=== PATIENT | male | born 1965 | race Caucasian/White ===

== ENCOUNTER 2022-06-15 18:56 | Inpatient (IN) | payer OTHER ==
[2022-06-15] MEDS ORDERED: NA CHLORIDE 0.9% 1,000 ML ONE (19:30)
[2022-06-15] MEDS ORDERED: PROMETHAZINE INJ 25 MG/ML AMP ONE (19:30)
[2022-06-15] MEDS ORDERED: FENTANYL CITR 100 MCG/2 ML ONE (19:34)
[2022-06-15 20:09] LABS: Absolute Lymphocytes (CBC) 2.9 K/uL (0.7-4.9); Hematocrit 42.9 % (39.6-49.0); MCV 90.8 fL (80-100); MPV 8.9 fL (7.6-11.3); RBC Red Blood Cell Count 4.73 M/uL (4.33-5.43)
[2022-06-15 20:18] LABS: Albumin 3.8 g/dL (3.4-5.0); Bilirubin Total 0.3 mg/dL (0.2-1.0); Potassium 4.7 mmol/L (3.5-5.1); Protein, Total 7.7 g/dL (6.4-8.2)
[2022-06-15] MEDS ORDERED: INSULIN -REGULAR HUMAN 50 UNIT/0.5 ML ML ONE (21:41)
--- NOTE | 2022-06-15 21:41 | RAD REPORT ---
EXAM DESCRIPTION: CTAbdomen Pelvis W Contrast - 06/15/2022 9:27 pm CLINICAL HISTORY: upper abdominal pain COMPARISON: No comparisons TECHNIQUE: CT of the abdomen and pelvis was performed with IV contrast. All CT scans are performed using dose optimization technique as appropriate and may include automated exposure control or mA/KV adjustment according to patient size. FINDINGS: Lower chest: Mild circumferential thickened distal esophagus. Liver: No acute abnormality or suspicious lesions. Biliary: No biliary ductal dilatation. Stomach: No significant focal abnormality. Duodenum: No significant focal abnormality. Pancreas: Mild edema around the head of the pancreas. Spleen: No significant abnormality. Adrenal: No suspicious lesions. Kidney/ureter: No hydronephrosis. No renal calculi. Retroperitoneum: Reactive size upper abdominal lymph nodes. Vascular: No aneurysm. Atherosclerosis. Bowel: No bowel obstruction. Normal appendix.. Peritoneum: No ascites or free air. Bladder: Grossly unremarkable. Reproductive: No adnexal masses. Mild prostatomegaly. Bones: No acute fracture. Trace retrolisthesis of L3-L4 L4 on L5. Multilevel degenerative changes are present in the spine. Other: n/a IMPRESSION: Haziness around the head of the pancreas and at the ji hepatis with reactive appearin g upper abdominal lymph nodes. This could reflect acute pancreatitis though is somewhat nonspecific. Correlate with lipase.
--- NOTE | 2022-06-15 21:49 | EDPHYS ---
Physician Documentation [facility] Name: Michael Bowman Jr Age: 57 yrs Sex: Male : 1965 Arrival Date: 06/15/2022 Time: 19:00 Bed 15 Private MD: ED Physician Avtar Hoffmann HPI: 06/16 00:50 This 57 yrs old Male presents to ER via Ambulatory with complaints of Abdominal Pain. kb 00:50 The patient presents with abdominal pain in the upper abdomen. Onset: The kb symptoms/episode began/occurred yesterday. The symptoms do not radiate. Associated signs and symptoms: Pertinent positives: nausea. The symptoms are described as constant. Modifying factors: The symptoms are alleviated by nothing, the symptoms are aggravated by nothing. Severity of pain: At its worst the pain was moderate in the emergency department the pain is unchanged. The patient has experienced similar episodes in the past. The patient has not recently seen a physician. Historical: - Allergies: 06/15 19:08 Cymbalta; lg3 19:08 Prozac; lg3 19:08 Morphine; lg3 - PMHx: 19:08 Diabetes mellitus; hypertension; acute chronic pancreatitis; pancreatic tumor; lg3 - PSHx: 19:08 ERCP; lg3 - Immunization history:: Adult Immunizations up to date, Client reports receiving the 2nd dose of the Covid vaccine, Flu vaccine is not up to date. - Social history:: Smoking status: Patient denies any tobacco usage or history of. Patient/guardian denies using alcohol, street drugs. ROS: 06/16 00:49 Constitutional: Negative for fever, chills, and weight loss. kb Abdomen/GI: Positive for abdominal pain, nausea. All other systems are negative. Exam: 00:49 Constitutional: This is a well developed, well nourished patient who is awake, alert, kb and in no acute distress. Head/Face: Normocephalic, atraumatic. ENT: Moist Mucous membranes Cardiovascular: Regular rate and rhythm with a normal S1 and S2. No gallops, murmurs, or rubs. No pulse deficits. Respiratory: Respirations even and unlabored. No increased work of breathing. Talking in full sentences Skin: Warm, dry with normal turgor. Normal color. MS/ Extremity: Pulses equal, no cyanosis. Neurovascular intact. Full, normal range of motion. Neuro: Awake and alert, GCS 15, oriented to person, place, time, and situation. Moves all extremities. Normal gait. Psych: Awake, alert, with orientation to person, place and time. Behavior, mood, and affect are within normal limits. 00:49 Abdomen/GI: Inspection: abdomen appears normal, Bowel sounds: normal, Palpation: soft, in all quadrants, mild abdominal tenderness, in the right upper quadrant and left upper quadrant, moderate abdominal tenderness, in the epigastric area. Vital Signs: 06/15 19:05 BP 111 / 81; Pulse 96; Resp 17 S; Temp 98.4; Pulse Ox 100% ; Weight 68.95 kg (R); lg3 Height 5 ft. 8 in. (172.72 cm) (R); Pain 8/10; 19:05 Body Mass Index 23.11 (68.95 kg, 172.72 cm) lg3 MDM: 19:01 Patient medically screened. kb 06/16 00:49 Differential diagnosis: gastritis, gastroesophageal reflux disease, pancreatitis. Data kb reviewed: vital signs, nurses notes. Consideration of Admission/Observation Patient was admitted/placed on observation. Management of patient was discussed with the following: Primary Care Provider: Petty accepts pt for admission under Dr Garcia. Counseling: I had a detailed discussion with the patient and/or guardian regarding: the historical points, exam findings, and any diagnostic results supporting the discharge/admit diagnosis, lab results, radiology results, the need for further work-up and treatment in the hospital. 06/15 19:09 Order name: CBC with Diff; Complete Time: 20:20 kb 06/15 19:09 Order name: CMP; Complete Time: 20:44 kb 06/15 19:09 Order name: Lipase; Complete Time: 20:44 kb 06/15 19:09 Order name: CT Abd/Pelvis - IV Contrast Only; Complete Time: 21:42 kb 06/15 21:47 Order name: SARS RAPID; Complete Time: 22:18 kb 06/15 19:09 Order name: IV Saline Lock; Complete Time: 19:49 kb 06/15 19:09 Order name: Labs collected and sent; Complete Time: 19:49 kb Administered Medications: 06/15 19:37 Drug: NS 0.9% 1000 ml Route: IV; Rate: 1 bolus; Site: left antecubital; ke1 19:37 Drug: fentaNYL (PF) 50 mcg Route: IVP; Site: left antecubital; ke1 19:49 Drug: Phenergan (promethazine) 25 mg Route: IM; Site: left deltoid; ke1 21:44 Drug: Insulin Regular Human 10 units {Co-Signature: lg3 (Rae Chamorro RN).} Route: IVP; ke1 Site: left antecubital; 22:04 Drug: Dilaudid (HYDROmorphone) 0.5 mg Route: IVP; Site: left antecubital; ke1 Disposition Summary: 06/15/22 21:48 Hospitalization Ordered Hospitalization Status: Inpatient Admission kb Provider: Lj Garcia Location: Telemetry/MedSurg (Inpatient) kb Condition: Stable kb Problem: new kb Symptoms: are unchanged kb Bed/Room Type: Standard Room Assignment: 411(06/15/22 22:21) mw Diagnosis - Acute pancreatitis without necrosis or infection, unspecified kb Forms: - Medication Reconciliation Form kb - SBAR form kb Signatures: Dispatcher [employer] EDMS Rosibel Zhang, SPRAY GUN STRIPER-C SPRAY GUN STRIPER-Georgie Blank RN ROSELYN mw Rae Chamorro, RN RN lg3 Flakito Torres DO DO ms3 Aiden Bañuelos RN RN ke1 Rema Cheney PAShira PAShira sb4 Rae Chamorro RN lg3 Corrections: (The following items were deleted from the chart) 22:21 21:48 kb mw
--- NOTE | 2022-06-15 21:49 | ER ---
Nurse's Notes [facility] Name: Michael Bowman Jr Age: 57 yrs Sex: Male : 1965 Arrival Date: 06/15/2022 Time: 19:00 Bed 15 Private MD: Diagnosis: Acute pancreatitis without necrosis or infection, unspecified Presentation: 06/15 19:05 Chief complaint: Patient states: upper abd pain starting yesterday with nausea. lg3 Coronavirus screen: Client denies travel out of the [place] in the last 14 days. At this time, the client does not indicate any symptoms associated with coronavirus-19. Ebola Screen: No symptoms or risks identified at this time. Initial Sepsis Screen: Does the patient meet any 2 criteria? No. Patient's initial sepsis screen is negative. Does the patient have a suspected source of infection? No. Patient's initial sepsis screen is negative. Risk Assessment: Do you want to hurt yourself or someone else? Patient reports no desire to harm self or others. Onset of symptoms was June 14, 2021. 19:05 Method Of Arrival: Ambulatory lg3 19:05 Acuity: BOWEN 3 lg3 Triage Assessment: 19:08 General: Appears in no apparent distress. comfortable, Behavior is calm, cooperative. lg3 Pain: Complains of pain in right upper quadrant and left upper quadrant Pain currently is 8 out of 10 on a pain scale. EENT: No deficits noted. No signs and/or symptoms were reported regarding the EENT system. Neuro: No deficits noted. Rodriges Agitation-Sedation Scale (RASS): 0 - Alert and Calm Level of Consciousness is awake, alert, obeys commands, Oriented to person, place, time, situation. Cardiovascular: No deficits noted. Denies chest pain, shortness of breath, Capillary refill < 3 seconds Clubbing of nail beds is absent JVD is absent Patient's skin is warm and dry. Respiratory: No deficits noted. Airway is patent Trachea midline Respiratory effort is even, unlabored, Respiratory pattern is regular, symmetrical. GI: Abdomen is round non-distended, Reports upper abdominal pain, nausea. : No deficits noted. No signs and/or symptoms were reported regarding the genitourinary system. Derm: No deficits noted. No signs and/or symptoms reported regarding the dermatologic system. Skin is intact, is healthy with good turgor, Skin is dry, Skin is normal. Musculoskeletal: No deficits noted. No signs and/or symptoms reported regarding the musculoskeletal system. Circulation, motion, and sensation intact. Range of motion: intact in all extremities. Historical: - Allergies: 19:08 Cymbalta; lg3 19:08 Prozac; lg3 19:08 Morphine; lg3 - PMHx: 19:08 Diabetes mellitus; hypertension; acute chronic pancreatitis; pancreatic tumor; lg3 - PSHx: 19:08 ERCP; lg3 - Immunization history:: Adult Immunizations up to date, Client reports receiving the 2nd dose of the Covid vaccine, Flu vaccine is not up to date. - Social history:: Smoking status: Patient denies any tobacco usage or history of. Patient/guardian denies using alcohol, street drugs. Screenin:30 [facility] ED Fall Risk Assessment (Adult) History of falling in the last 3 months, ke1 including since admission No falls in past 3 months (0 pts) Confusion or Disorientation No (0 pts) Intoxicated or Sedated No (0 pts) Impaired Gait No (0 pts) Mobility Assist Device Used No (0 pt) Altered Elimination No (0 pt) Score/Fall Risk Level 0 - 2 = Low Risk. Abuse screen: Denies threats or abuse. Nutritional screening: No deficits noted. Tuberculosis screening: No symptoms or risk factors identified. Assessment: 22:41 GI: ke1 Vital Signs: 19:05 BP 111 / 81; Pulse 96; Resp 17 S; Temp 98.4; Pulse Ox 100% ; Weight 68.95 kg (R); lg3 Height 5 ft. 8 in. (172.72 cm) (R); Pain 8/10; 19:05 Body Mass Index 23.11 (68.95 kg, 172.72 cm) lg3 ED Course: 19:00 Patient arrived in ED. rg4 19:00 Rosibel Zhang FNP-C is [facility]. kb 19:01 Avtar Hoffmann MD is Attending Physician. kb 19:08 Triage completed. lg3 19:08 Arm band placed on right wrist. lg3 19:14 Aiden Bañuelos, ROSELYN is Primary Nurse. ke1 19:36 Inserted saline lock: 20 gauge in left antecubital area, using aseptic technique. ke1 Accessed. 19:49 CBC with Diff Sent. ke1 19:49 CMP Sent. ke1 19:49 Lipase Sent. ke1 21:29 CT Abd/Pelvis - IV Contrast Only In Process Unspecified. EDMS 21:48 Lj Garcia is Hospitalizing Provider. kb 21:53 SARS RAPID Sent. ke1 22:41 No provider procedures requiring assistance completed. Patient admitted, IV remains in ke1 place. 22:42 Patient has correct armband on for positive identification. Bed in low position. ke1 Administered Medications: 19:37 Drug: NS 0.9% 1000 ml Route: IV; Rate: 1 bolus; Site: left antecubital; ke1 19:37 Drug: fentaNYL (PF) 50 mcg Route: IVP; Site: left antecubital; ke1 19:49 Drug: Phenergan (promethazine) 25 mg Route: IM; Site: left deltoid; ke1 21:44 Drug: Insulin Regular Human 10 units {Co-Signature: lg3 (Rae Chamorro RN).} Route: IVP; ke1 Site: left antecubital; 22:04 Drug: Dilaudid (HYDROmorphone) 0.5 mg Route: IVP; Site: left antecubital; ke1 Medication: 22:42 VIS not applicable for this client. ke1 Outcome: 21:48 Decision to Hospitalize by Provider. kb 22:42 Admitted to Med/surg accompanied by tech. ke1 22:42 Condition: good 22:42 Instructed on the need for admit. 22:42 Patient left the ED. ke1 Signatures: Dispatcher [employer] EDMS Rosibel Zhang, HASMUKH-C HELP DESK OPERATOR-Aiyana Sales rg4 Rae Chamorro, RN RN lg3 Aiden Bañuelos RN RN ke1 Rae Chamorro RN lg3
--- NOTE | 2022-06-15 22:03 | P.HP ---
Certification for Inpatient Patient admitted to: Inpatient With expected LOS: <2 Midnights Patient will require the following post-hospital care: None Practitioner: I am a practitioner with admitting privileges, knowledge of patient current condition, hospital course, and medical plan of care. Services: Services provided to patient in accordance with Admission requirements found in Title 42 Section 412.3 of the Code of Federal Regulations Patient History Date of Service: 06/15/22 Reason for admission: Acute Pancreatitis History of Present Illness: Patient is a 57 year old male with past medical history of hypertension, insulin dependent type 2 diabetes, dementia who presented to the emergency department with complaints of epigastric abdominal pain and nausea. Labs are significant for lipase 479, glucose 415, alk phos 171. CT showed "Haziness around the head of the pancreas and at the ji hepatis with reactive appearing upper abdominal lymph nodes. This could reflect acute pancreatitis though is somewhat nonspecific. Correlate with lipase." Patient is admitted for further management. Home medications list reviewed: Yes - Past Medical/Surgical History Diabetic: Yes -: Type 2 Diabetes, Insulin Dependent -: Hypertension -: Pancreatitis -: Dementia -: ERCP Psychosocial/ Personal History: Patient lives at home alone. He recently moved here from [place]. - Social History Smoking Status: Never smoker Alcohol use: No CD- Drugs: No Caffeine use: Yes Place of Residence: Home Review of Systems Gastrointestinal: Nausea, Abdominal Pain Physical Examination - Vital Signs Temperature: 98.4 F Blood Pressure: 111/81 Pulse: 96 Respirations: 17 Pulse Ox (%): 100 - Physical Exam General: Alert, In no apparent distress HEENT: Atraumatic, PERRLA, EOMI, Sclerae nonicteric Neck: Supple, 2+ carotid pulse no bruit Respiratory: Clear to auscultation bilaterally, Normal air movement Cardiovascular: Regular rate/rhythm, Normal S1 S2 Gastrointestinal: Normal bowel sounds, Non-distended, Tenderness Musculoskeletal: No tenderness Integumentary: No rashes Neurological: Normal speech, Normal strength at 5/5 x4 extr, Normal tone, Normal affect - Studies Laboratory Data (last 24 hrs) 06/15/22 19:22: Sodium 136, Potassium 4.7, BUN 20 H, Creatinine 1.15, Glucose 415 H*, Total Bilirubin 0.3, AST 15, ALT 31, Alkaline Phosphatase 191 H, Lipase 479 H 06/15/22 19:22: WBC 9.90, Hgb 14.3, Hct 42.9, Plt Count 356 Assessment and Plan - Problems (Diagnosis) (1) Pancreatitis Current Visit: Yes Status: Acute Qualifiers: Chronicity: acute Pancreatitis type: other Acute pancreatitis complication: no infection or necrosis Qualified Code(s): K85.80 - Other acute pancreatitis without necrosis or infection (2) Hypertension Current Visit: Yes Status: Chronic Qualifiers: Hypertension type: primary hypertension Qualified Code(s): I10 - Essential (primary) hypertension (3) Type 2 diabetes mellitus Current Visit: Yes Status: Chronic Qualifiers: Diabetes mellitus fci insulin use: unspecified terminal make up operator insulin use status Diabetes mellitus complication status: with hyperglycemia Qualified Code(s): E11.65 - Type 2 diabetes mellitus with hyperglycemia - Plan Patient is admitted for further management of acute pancreatitis. NPO. IV hydration. Pain medications and antiemetics as needed. Glucose monitoring and control with sliding scale. Confirm home insulin dose. Check lipid panel and A1c. Patient report at least 10 prior episodes of pancreatitis. 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 Lipase daily. Monitor and replete electrolytes per protocol. Reconcile and continue home medications. Lovenox for VTE prophylaxis. Full code. Discharge Plan: Home Plan to discharge in: 48 Hours - Advance Directives Does patient have a Living Will: No Does patient have a Durable POA for Healthcare: No - Code Status/Comfort Care Code Status Assessed: Yes Code Status: Full Code Physician Review: Patient Assessed, Agree with Above Assessment and Plan Critical Care: No Time Spent Managing Pts Care (In Minutes): 50
[2022-06-15] MEDS ORDERED: HYDROMORPHONE HCL 0.5 MG/0.5 ML INJ ONE (22:04)
[2022-06-15 22:08] LABS: SARS-CoV-2 Antigen Rapid Res Negative (Negative)
[2022-06-15 22:55] VITALS: O2SAT 100
[2022-06-15 23:05] VITALS: BMI 22.5
[2022-06-15] MEDS ORDERED: PROMETHAZINE INJ 25 MG/ML AMP IV PRN (23:07)
[2022-06-15] MEDS ORDERED: HYDROMORPHONE HCL 0.5 MG/0.5 ML INJ IV PRN (23:07)
[2022-06-15] MEDS ORDERED: ACETAMINOPHEN 500 MG TAB PO PRN (23:07)
[2022-06-16] MEDS: Ringers Lactate 1,000 ML IV SCH ×2 (00:45→09:04)
[2022-06-16 05:03] LABS: Absolute Lymphocytes (CBC) 3.1 K/uL (0.7-4.9); Hematocrit 41.5 % (39.6-49.0); Lymphocytes % 35.5 % (15.3-44.8); MCV 90.5 fL (80-100); MPV 8.2 fL (7.6-11.3); RBC Red Blood Cell Count 4.58 M/uL (4.33-5.43)
[2022-06-16 05:33] LABS: Albumin 3.3 g/dL (3.4-5.0); Bilirubin Total 0.3 mg/dL (0.2-1.0); Phosphorus 3.5 mg/dL (2.5-4.9); Potassium 4.7 mmol/L (3.5-5.1); Protein, Total 7.2 g/dL (6.4-8.2)
[2022-06-16 05:34] LABS: Magnesium 2.1 mg/dL (1.6-2.4); Thyroid Stimulating Hormone 1.89 uIU/mL (0.358-3.740)
[2022-06-16] MEDS ORDERED: INSULIN -REGULAR HUMAN 50 UNIT/0.5 ML ML SQ SCH (07:30)
[2022-06-16 08:08] VITALS: BP 123/80; TEMP 97.6
[2022-06-16] MEDS: ENOXAPARIN 40 MG/0.4 ML SQ SCH ×2 (09:00→09:03)
--- NOTE | 2022-06-16 11:31 | P.DS ---
Discharge Date: 06/16/22 Disposition: ROUTINE DISCHARGE Discharge Condition: FAIR Reason for Admission: Acute Pancreatitis - Problems (1) Acute pancreatitis Status: Acute (2) Hypertension Status: Chronic Qualifiers: Hypertension type: primary hypertension Qualified Code(s): I10 - Essential (primary) hypertension (3) Type 2 diabetes mellitus Status: Chronic Qualifiers: Diabetes mellitus extermination supervisor insulin use: unspecified extermination supervisor insulin use status Diabetes mellitus complication status: with hyperglycemia Qualified Code(s): E11.65 - Type 2 diabetes mellitus with hyperglycemia Brief History of Present Illness: Patient is a 54 year old male with past medical history of CHF, situs inversus, and non-insulin dependent type 2 diabetes who presented to the emergency departm ent with complaints of shortness of breath. He reports it has gotten progressively worse over the past 3 months and is especially worse when he lies flat. His labs are significant for glucose 195, BUN 19, Cr 1.38, ddimer 1286, magnesium 1.5, BNP 5048. Chest xray was negative. Chest CTA showed " mild pulmonary congestion including bilateral pleural effusions." it was noted that patient's O2 saturation dropped down to 88% while resting. Patient states that he was diagnosed with CHF in the past but has not taken any medication or followed up with anyone about it. He was given 40 mg IV lasix in the emergency department. Patient is admitted for further management. Hospital Course: Patient admitted to the medical floor and treated supportively with IV hydration. His abdominal pain resolved, lipase trended down to normal. Patient currently denies any symptoms. He tolerated solid diet. Patient states that he was noncompliant with his insulin. He states that his blood sugars usually well controlled with Levemir 30 units twice a day and just got a refill for his Levemir. Patient is deemed stable for discharge. Vital Signs/Physical Exam: Temp Pulse Resp BP Pulse Ox 97.6 F 75 16 123/80 99 06/16/22 08:00 06/16/22 08:00 06/16/22 09:30 06/16/22 08:00 06/16/22 09:30 General: Alert, In no apparent distress, Oriented x3 HEENT: Mucous membr. moist/pink Neck: JVD not distended Respiratory: Clear to auscultation bilaterally, Normal air movement Cardiovascular: No edema, Regular rate/rhythm, Normal S1 S2 Gastrointestinal: Normal bowel sounds, Soft and benign, Non-distended, No tenderness Musculoskeletal: No swelling Integumentary: No rashes Neurological: Normal strength at 5/5 x4 extr Laboratory Data at Discharge: WBC 8.60 K/uL (4.3-10.9) 06/16/22 04:52 Hgb 13.8 g/dL (13.6-17.9) 06/16/22 04:52 Hct 41.5 % (39.6-49.0) 06/16/22 04:52 Plt Count 301 K/uL (152-406) 06/16/22 04:52 Sodium 140 mmol/L (136-145) 06/16/22 04:52 Potassium 4.7 mmol/L (3.5-5.1) 06/16/22 04:52 BUN 15 mg/dL (7-18) 06/16/22 04:52 Creatinine 0.88 mg/dL (0.70-1.30) 06/16/22 04:52 Glucose 289 mg/dL (74-106) H 06/16/22 04:52 Phosphorus 3.5 mg/dL (2.5-4.9) 06/16/22 04:52 Magnesium 2.1 mg/dL (1.6-2.4) 06/16/22 04:52 Total Bilirubin 0.3 mg/dL (0.2-1.0) 06/16/22 04:52 AST 12 U/L (15-37) L 06/16/22 04:52 ALT 23 U/L (16-61) 06/16/22 04:52 Alkaline Phosphatase 145 U/L (45-117) H D 06/16/22 04:52 Triglycerides 100 mg/dL (<150) 06/16/22 04:52 Cholesterol 178 mg/dL (<200) 06/16/22 04:52 HDL Cholesterol 45 mg/dL (40-60) 06/16/22 04:52 Cholesterol/HDL Ratio 3.96 06/16/22 04:52 Lipase 320 U/L (73-393) 06/16/22 04:52 Home Medications: Insulin Detemir [Levemir] 30 units SQ BID 06/16/22 Diet: ADA Activity: Ad kimberly Followup: Kane Wells MD [ASSOCIATE-ACTIVE - CAN ADMIT] - 1-2 Weeks (Call to schedule appointment. ) Time spent managing pt's care (in minutes): 32
== END 2022-06-16 10:15 | disposition home or self-care (01) | DRG 440 ==
LOC: ER 18:56 → ERHOLD 22:15 → 4TH 22:29
PROVIDERS: ADMIT Internal Medicine; ATTEND Internal Medicine
DX: K85.80 Other acute pancreatitis without necrosis or infection (principal); I10 Essential (primary) hypertension; E11.65 Type 2 diabetes mellitus with hyperglycemia; F03.90 Unspecified dementia, unspecified severity, without behavioral disturbance, psychotic disturbance, mood disturbance, and anxiety; D49.0 Neoplasm of unspecified behavior of digestive system; Z91.14 Patient's other noncompliance with medication regimen; Z79.4 Long term (current) use of insulin; Z88.5 Allergy status to narcotic agent; Z88.8 Allergy status to other drugs, medicaments and biological substances; Z20.822 Contact with and (suspected) exposure to COVID-19
CPT/HCPCS: 36415; 74177; 80053; 80061; 82947; 83036; 83690; 83735; 84100; 84443; 85025; 87811; 96372; 96374; 96375; 99285; J1170; J1650; J1815; J2550; J3010; J7030; J7120; Q9967

== ENCOUNTER 2022-06-17 19:21 | Observation (INO) | payer OTHER ==
--- OUTSIDE RECORDS SUMMARY | 2022-06-17 19:24 | XMS REPORT | Continuity of Care Document ---
:1965 Author Organization [facility] t Address [address] [place] [address] Care Team Providers Name Role Phone Unavailable Unavailable Unavailable Problems This patient has no known problems. Allergies, Adverse Reactions, Alerts This patient has no known allergies or adverse reactions. Medications This patient has no known medications. Procedures This patient has no known procedures. Encounters Start End Encounter Admission Attending Care Care Encounter Source Date/Time Date/Time Type Type Clinicians Facility Department ID 2022-06-14 2022-06-14 Outpatient [facility] [id number] Andrea 13:26:50 13:26:50 [id number] [facility] 2022-06-13 2022-06-13 Outpatient [facility] [id number] Andrea 13:54:55 13:54:55 [id number] [place] Results Test Description Test Time Test Comments Results Result Comments Source VITAMIN B-12 2022-06-15 06:59:33 Test Item Value Reference Range Interpretation Comme nts VITAMIN B-12 (test code = 545 PG/ML 200-950 U NLESS OTHERWISE INDICATED, ALL 2840) TESTING PERFORM ED ATCLINICAL PATHOLOGY [facility]. [address] [place] [id number] SUPERVISOR SHEARING: COLLIN IQBAL M.D. CLIA NUMBER [id number] CAP ACCREDITATION N O. [id number] TSH, THIRD [id number] 06:59:33 Test Item Value Reference Range Interpretation Comments TSH, THIRD GENERATION (test code 1.630 UIU/ML 0.400-4.100 = 2821) FOLIC [id number] 06:59:33 Test Item Value Reference Range Interpretation Comments FOLIC ACID (test 7.6 UG/L SEE BELOW INTE RPRETIVE RANGES code = 2695) DEFICIENC Y . . . . . . . . . . . . . . . UG/L <4.0 POSSIBLE D EFICIENCY. . . . . . . . . . . UG/L 4.0-5.9 SUFFICI ENT . . . . . . . . . . . . . . . UG/L >=6.0 HEMOGLOBIN [id number] 05:18:02 Test Item Value Reference Range Interpretation Comments HEMOGLOBIN A1c (test 13.6 % 4.2-5.6 H AMERIC AN DIABETES code = 83859) ASSOCIATION IDELINES FOR HGB A1C: PREDIABETES/INC REASED RISK . . . . . . . 5 .7-6.4% DIAGNOSIS OF DI ABETES . . . . . . . . . >=6 .5% WITH CONFIRMATION OR APPROPRIATE SYMPTOMS NOTE: ASSAY MAY BE AFFECTED BY HEMOGLOBINOPATH IES (SICKLE CELL ANEMIA, S- C DISEASE, OTHERS) OR RACHEAL FICIALLY LOWERED BY DECR EASED RED CELL SURVIVAL ( HEMOLYTIC ANEMIAS, BLOOD LOSS, ETC.). CONSIDER ALTERN ATE TESTING OR LABORATORY C ONSULTATION. [id number] 04:00:01 Test Item Value Reference Range Interpretation Comments RPR RESULT (test code = NON-REACTIVE NON-REACTIVE 3501) RPR TITER (test code = 3500) NOT INDIC. TITER NOT INDIC. COMPREHENSIVE METABOLIC [id number] 03:45:17 Test Item Value Reference Range Interpretation Comments GLUCOSE (test code = 447 MG/DL 70-99 H 2216) BUN (test code = 18 MG/DL 6-20 2207) CREATININE (test 0.80 MG/DL 0.80-1.40 code = 2214) eGFR (2020 CKD-EPI) 102 >60 (test code = 93363) ML/MIN/1.73 CALC BUN/CREAT (test 23 RATIO 6-28 code = 2235) SODIUM (test code = 138 MEQ/L 736-163 5820) POTASSIUM (test code 5.6 MEQ/L 3.5-5.4 H = 2227) CHLORIDE (test code 98 MEQ/L 95-107 = 2214) CARBON DIOXIDE (test 25 MEQ/L 19-31 code = 2206) CALCIUM (test code = 10.6 MG/DL 8.5-10.5 H 2208) PROTEIN, TOTAL (test 7.9 G/DL 6.1-8.3 code = 2229) ALBUMIN (test code = 4.9 G/DL 3.5-5.2 2200) CALC GLOBULIN (test 3.0 G/DL 1.9-3.7 code = 2240) CALC A/G RATIO (test 1.6 RATIO 1.0-2.6 code = 2234) BILIRUBIN, TOTAL 0.4 MG/DL See_Comment [Automated message] (test code = 2207) The syste m which generated this result transmit [place] reference range : <=1.2. The refe rence range was not u sed to interpret th is result as normal/abnormal . ALKALINE PHOSPHATASE 191 U/L 40-123 H (test code = 2203) AST (test code = 18 U/L 9-50 2217) ALT (test code = 25 U/L 5-50 2218) HEPATITIS PANEL, [id number] 03:42:09 Test Item Value Reference Range Interpretation Comments HEPATITIS A IgM (test NON-REACTIVE NON-REACTIVE code = 14227) HEPATITIS B CORE IgM NON-REACTIVE NON-REACTIVE (test code = 4644) HEPATITIS B SURF AG NON-REACTIVE NON-REACTIVE (test code = 2739) HEPATITIS C ANTIBODY REACTIVE NON-REACTIVE A (test code = 4675) INTERPRETATION (NOTE) Hepatitis A HEPATITIS A: (test serology shows no code = 2552) evidence of acu te hepatitis A. INTERPRETATION (NOTE) Hepatitis B HEPATITIS B: (test serology shows no code = 16423) evidence of ac vanessa hepatitis B and no indication of exposure to hepatitis B vir us in the previous si xto eight months. INTERPRETATION (NOTE) Hepatitis C HEPATITIS C: (test serology is code = 30404) consistent wit h exposure to hepatitis Cviru s. The CDC recomme nds performing a supplemental confirmatory te ston initial positiv e hepatitis C ant ibody tests. HCV PCR quantitativecan be used to confirm these results o n a new sample (See MMWR, 2003;52 R R-3). CBC W/AUTO DIFF WITH [id number] 02:25:00 Test Item Value Reference Range Interpretation Comments WBC (test code = 9.6 K/UL 3.5-11.0 1001) RBC (test code = 5.13 M/UL 4.50-6.10 1002) HEMOGLOBIN (test code 15.1 G/DL 13.5-17.0 = 1003) HEMATOCRIT (test code 46.0 % 40.0-51.0 = 1004) MCV (test code = 89.7 fL 80.0-99.0 1005) MCH (test code = 29.4 PG 25.0-33.0 1006) MCHC (test code = 32.8 G/DL 31.0-36.0 1007) RDW (test code = 12.9 % 11.5-15.0 1038) NEUTROPHILS (test 58.4 % code = 1008) LYMPHOCYTES (test 26.9 % code = 1010) MONOCYTES (test code 10.0 % = 1011) EOSINOPHILS (test 3.1 % code = 1012) BASOPHILS (test code 1.1 % = 1013) IMMATURE GRANULOCYTES 0.5 % (test code = 1036) NUCLEATED RBCS (test 0.0 /100 WBC'S See_Comment [Aut omated code = 1065) message] The sy stem which generated this result transmitted reference range : 0.0. The refere nce range was not u sed to interpret th is result as normal/abnormal . PLATELET COUNT (test 381 K/UL 130-400 code = 1015) ABSOLUTE NEUTROPHILS 5.58 K/UL 1.50-7.50 (test code = 1066) ABSOLUTE LYMPHOCYTES 2.58 K/UL 1.00-4.00 (test code = 1067) ABSOLUTE MONOCYTES 0.96 K/UL 0.20-1.00 (test code = 1068) ABSOLUTE EOSINOPHILS 0.30 K/UL 0.00-0.50 (test code = 1040) ABSOLUTE BASOPHILS 0.11 K/UL 0.00-0.20 (test code = 1069) ABS IMMATURE 0.05 K/UL 0.00-0.10 GRANULOCYTES (test code = 1020) ABS NUCLEATED RBCS 0.00 K/UL 0.00-0.11 (test code = 98111)
[2022-06-17] MEDS ORDERED: NA CHLORIDE 0.9% 1,000 ML ONE ×2 (20:23→21:23)
[2022-06-17 20:33] LABS: Absolute Lymphocytes (CBC) 2.8 K/uL (0.7-4.9); Lymphocytes % 31.6 % (15.3-44.8); MCV 90.6 fL (80-100); MPV 8.6 fL (7.6-11.3); RBC Red Blood Cell Count 4.75 M/uL (4.33-5.43)
[2022-06-17 20:51] LABS: Albumin 3.4 g/dL (3.4-5.0); Bilirubin Total 0.4 mg/dL (0.2-1.0); Protein, Total 7.3 g/dL (6.4-8.2)
[2022-06-17 20:52] LABS: Potassium 4.1 mmol/L (3.5-5.1)
--- NOTE | 2022-06-17 20:59 | EDPHYS ---
Physician Documentation [facility] Name: Michael Bowman Jr Age: 57 yrs Sex: Male : 1965 Arrival Date: 06/17/2022 Time: 19:22 Bed 2 Private MD: ED Physician Flakito Torres HPI: 06/17 19:54 This 57 yrs old Male presents to ER via Ambulatory with complaints of Abdominal Pain - ms3 pancreatitis. 19:54 57-year-old male with past medical history of acute chronic pancreatitis, diabetes, ms3 hypertension presents for upper abdominal pain. Patient states he was admitted on June 15 and discharged on the for pancreatitis. Patient states his pain is located in the epigastric region, rated a 9/10. Patient states he has not taken insulin until this afternoon when he was able to obtain his needles for his pen.. Historical: - Allergies: 19:47 Cymbalta; ll3 19:47 Morphine; ll3 19:47 Prozac; ll3 - PMHx: 19:47 acute chronic pancreatitis; diabetes mellitus; Hypertension; PANCREATIC TUMOR; ll3 - PSHx: 19:47 ercp; ll3 - Immunization history:: Client reports receiving the 2nd dose of the Covid vaccine. - Social history:: Smoking status: Patient denies any tobacco usage or history of. ROS: 19:54 Constitutional: Negative for fever, and chills. Cardiovascular: Negative for chest ms3 pain, and palpitations. Respiratory: Negative for shortness of breath, cough, wheezing, and pleuritic chest pain, MS/Extremity: Negative for injury and deformity, Skin: Negative for injury, rash, and discoloration. 19:54 All other systems are negative. Exam: 19:54 Constitutional: This is a well developed, well nourished patient who is awake, alert, ms3 and in no acute distress. 19:54 Head/Face: Normocephalic, atraumatic. Neck: Trachea midline, no cervical lymphadenopathy. Supple, full range of motion without nuchal rigidity, or vertebral point tenderness. No Meningismus. Chest/axilla: Normal chest wall appearance and motion. Nontender with no deformity. Cardiovascular: Regular rate and rhythm with a normal S1 and S2. No gallops, murmurs, or rubs. Normal PMI, no JVD. No pulse deficits. Respiratory: Lungs have equal breath sounds bilaterally, clear to auscultation and percussion. No rales, rhonchi or wheezes noted. No increased work of breathing, no retractions or nasal flaring. 19:54 Skin: Warm, dry with normal turgor. Normal color with no rashes, no lesions, and no evidence of cellulitis. MS/ Extremity: Pulses equal, no cyanosis. Neurovascular intact. Full, normal range of motion. 19:54 Abdomen/GI: Inspection: abdomen appears normal, Bowel sounds: normal, Palpation: severe ms3 abdominal tenderness, in the epigastric area. Vital Signs: 19:41 BP 145 / 89; Pulse 93; Resp 18; Temp 97.5(TE); Pulse Ox 99% on R/A; Weight 70.31 kg ll3 (R); Height 5 ft. 8 in. (172.72 cm) (R); Pain 9/10; 21:45 BP 134 / 87; Pulse 95; Resp 16; Pulse Ox 100% on R/A; jb4 19:41 Body Mass Index 23.57 (70.31 kg, 172.72 cm) ll3 MDM: 19:35 Patient medically screened. ms3 20:59 I considered the following discharge prescriptions or medication management in the co3 emergency department Medications were administered in the Emergency Department. See MAR. Care significantly affected by the following chronic conditions: Diabetes, Hypertension. ED course: Discussed with patient his lipase is mildly elevated, higher than when at discharge. Discharge versus admission discussed with patient and the decision was made for readmission. Discussed pain medication, Phenergan for nausea with patient. Discussed with patient he will be n.p.o. and we will begin IV fluids.. 21:18 Differential diagnosis: bowel obstruction, non-specific abd pain, pancreatitis. Data ms3 reviewed: vital signs, nurses notes, lab test result(s), CBC, white blood cell count, hemoglobin, hematocrit, platelets, electrolytes, hepatic panel, and as a result, I will discharge patient. Consideration of Admission/Observation Patient was admitted/placed on observation. Management of patient was discussed with the following: Hospitalist: . 21:22 Test considered but Not performed: CT: CT performed on June 15 showing mild ms3 pancreatitis of the pancreatic head.. Counseling: I had a detailed discussion with the patient and/or guardian regarding: the historical points, exam findings, and any diagnostic results supporting the discharge/admit diagnosis, lab results, the need for further work-up and treatment in the hospital. 06/17 19:25 Order name: CBC with Diff; Complete Time: 20:55 ms3 06/17 19:25 Order name: CMP; Complete Time: 20:55 ms3 06/17 19:25 Order name: Lipase; Complete Time: 20:55 ms3 06/17 21:03 Order name: SARS RAPID vc1 06/17 21:37 Order name: Glucose, Ancillary Testing EDMS 06/17 22:06 Order name: SARS-COV-2 Antigen Rapid EDMS 06/17 19:25 Order name: IV Saline Lock; Complete Time: 20:28 ms3 06/17 19:25 Order name: Labs collected and sent; Complete Time: 20:28 ms3 Administered Medications: 20:20 Drug: NS 0.9% 1000 ml Route: IV; Rate: 1 bolus; Site: left antecubital; jb4 21:40 Not Given (Patient Refused): Phenergan (promethazine) 25 mg IM once jb4 21:41 Drug: Dilaudid (HYDROmorphone) 0.5 mg Route: IVP; Site: left antecubital; jb4 21:41 Drug: NS 0.9% 1000 ml Route: IV; Rate: 150 ml/hr; Site: left antecubital; jb4 21:41 Drug: Insulin Regular Human 10 units {Co-Signature: [email or web address] (Omkar Turner RN).} Route: vc1 Sub-Q; Site: left lower abdomen; Disposition Summary: 06/17/22 20:59 Hospitalization Ordered Hospitalization Status: Inpatient Admission ms3 Provider: Lj Garcia ms3 Location: Telemetry/MedSurg (Inpatient) ms3 Condition: Stable ms3 Problem: new ms3 Symptoms: are unchanged ms3 Bed/Room Type: Standard ms3 Room Assignment: 413(06/17/22 21:30) mw Diagnosis - Acute pancreatitis without necrosis or infection, unspecified ms3 - Hyperglycemia, unspecified ms3 - Essential (primary) hypertension ms3 Forms: - Medication Reconciliation Form ms3 - SBAR form ms3 Signatures: Dispatcher [employer] EDSC Georgie Greer RN RN mw Bryson, James, RN RN jbFlakito Vicente DO ms3 Maren Marinelli, RN RN ll3 Dania Greenberg, ROSELYN RN vc1 Omkar Turner RN jb4 Corrections: (The following items were deleted from the chart) 20:05 19:54 Abdomen/GI: Soft, non-tender, with normal bowel sounds. No distension or tympany. ms3 No guarding or rebound. No evidence of tenderness throughout. Skin: Warm, dry with normal turgor. Normal color with no rashes, no lesions, and no evidence of cellulitis. MS/ Extremity: Pulses equal, no cyanosis. Neurovascular intact. Full, normal range of motion. ms3 21:30 20:59 ms3 mw
--- NOTE | 2022-06-17 20:59 | ER ---
Nurse's Notes [facility] Name: Michael Bowman Jr Age: 57 yrs Sex: Male : 1965 Arrival Date: 06/17/2022 Time: 19:22 Bed 2 Private MD: Diagnosis: Acute pancreatitis without necrosis or infection, unspecified;Hyperglycemia, unspecified;Essential (primary) hypertension Presentation: 06/17 19:41 Chief complaint: Patient states: States I was admitted 3 days ago with pancreatitis, ll3 c/o LUQ pain, states I haven't had a bowel movement 3 days. Coronavirus screen: Vaccine status: Patient reports receiving the 2nd dose of the covid vaccine. muscle pain. Ebola Screen: No symptoms or risks identified at this time. Initial Sepsis Screen: Does the patient meet any 2 criteria? No. Patient's initial sepsis screen is negative. Does the patient have a suspected source of infection? Yes: Acute abdominal pain. Risk Assessment: Do you want to hurt yourself or someone else? Patient reports no desire to harm self or others. Onset of symptoms was June 14, 2022. 19:41 Method Of Arrival: Ambulatory ll3 19:41 Acuity: BOWEN 3 ll3 Historical: - Allergies: 19:47 Cymbalta; ll3 19:47 Morphine; ll3 19:47 Prozac; ll3 - PMHx: 19:47 acute chronic pancreatitis; diabetes mellitus; Hypertension; PANCREATIC TUMOR; ll3 - PSHx: 19:47 ercp; ll3 - Immunization history:: Client reports receiving the 2nd dose of the Covid vaccine. - Social history:: Smoking status: Patient denies any tobacco usage or history of. Screenin:20 [facility] ED Fall Risk Assessment (Adult) History of falling in the last 3 months, jb4 including since admission No falls in past 3 months (0 pts) Confusion or Disorientation No (0 pts) Intoxicated or Sedated No (0 pts) Impaired Gait No (0 pts) Mobility Assist Device Used No (0 pt) Altered Elimination No (0 pt) Score/Fall Risk Level 0 - 2 = Low Risk Oriented to surroundings, Maintained a safe environment. Abuse screen: Denies threats or abuse. Nutritional screening: No deficits noted. Tuberculosis screening: No symptoms or risk factors identified. Assessment: 20:20 General: Appears in no apparent distress. comfortable, Behavior is calm, cooperative, jb4 appropriate for age. Pain: Complains of pain in abdomen Pain does not radiate. Pain currently is 9 out of 10 on a pain scale. Neuro: Level of Consciousness is awake, alert, obeys commands, Oriented to person, place, time, situation. Cardiovascular: Patient's skin is warm and dry. Respiratory: Airway is patent Respiratory effort is even, unlabored, Respiratory pattern is regular, symmetrical. GI: Abdomen is flat, non-distended. : No signs and/or symptoms were reported regarding the genitourinary system. EENT: No signs and/or symptoms were reported regarding the EENT system. Derm: Skin is intact, Skin is pink, warm \\T\\ dry. Musculoskeletal: Circulation, motion, and sensation intact. Range of motion: intact in all extremities. 21:20 General: Patient came up to nurses stationing dave, with the only clear words were tw5 " I want this taken out." Patient points to IV. He continued to the Dr. Station saying " My Lipase is normal, I have been hospitalized 13 times, I am not an idiot.". 21:20 General: Behavior is agitated, uncooperative, Patient was asked if he would like to put tw5 a hospital gown on and his response was " WHY, DONT YOU WANT ME TO BE WARM." It was explained to paint that he has the right to refuse. . 22:11 Reassessment: Patient appears in no apparent distress at this time. Patient and/or jb4 family updated on plan of care and expected duration. Pain level reassessed. Patient is alert, oriented x 3, equal unlabored respirations, skin warm/dry/pink. Vital Signs: 19:41 BP 145 / 89; Pulse 93; Resp 18; Temp 97.5(TE); Pulse Ox 99% on R/A; Weight 70.31 kg ll3 (R); Height 5 ft. 8 in. (172.72 cm) (R); Pain 9/10; 21:45 BP 134 / 87; Pulse 95; Resp 16; Pulse Ox 100% on R/A; jb4 19:41 Body Mass Index 23.57 (70.31 kg, 172.72 cm) ll3 ED Course: 19:22 Patient arrived in ED. am2 19:24 Flakito Torres DO is Attending Physician. ms3 19:47 Triage completed. ll3 19:47 Arm band placed on Patient placed in waiting room, Patient notified of wait time. ll3 20:20 Patient has correct armband on for positive identification. Bed in low position. Call jb4 light in reach. Side rails up X 1. Client placed on continuous cardiac and pulse oximetry monitoring. NIBP monitoring applied. 20:20 Initial lab(s) drawn, by me, sent to lab. Inserted saline lock: 18 gauge in left jb4 antecubital area, using aseptic technique. Blood collected. 20:28 CBC with Diff Sent. jb4 20:28 CMP Sent. jb4 20:28 Lipase Sent. jb4 20:57 Lj Garcia is Hospitalizing Provider. ms3 Administered Medications: 20:20 Drug: NS 0.9% 1000 ml Route: IV; Rate: 1 bolus; Site: left antecubital; jb4 21:40 Not Given (Patient Refused): Phenergan (promethazine) 25 mg IM once jb4 21:41 Drug: Dilaudid (HYDROmorphone) 0.5 mg Route: IVP; Site: left antecubital; jb4 21:41 Drug: NS 0.9% 1000 ml Route: IV; Rate: 150 ml/hr; Site: left antecubital; jb4 21:41 Drug: Insulin Regular Human 10 units {Co-Signature: [email or web address] (Omkar Turner RN).} Route: vc1 Sub-Q; Site: left lower abdomen; Medication: 21:20 VIS not applicable for this client. tw5 Outcome: 20:59 Decision to Hospitalize by Provider. ms3 22:24 Patient left the ED. vc1 Signatures: Omkar Turner, RN RN jb4 Jeny Card am2 Flakito Torres DO DO ms3 Susy Dozier tw5 Maren Marinelli RN RN ll3 Dania Greenberg RN RN vc1 Omkar Turner RN jb4
--- NOTE | 2022-06-17 21:05 | P.HP ---
Certification for Inpatient Patient admitted to: Inpatient With expected LOS: <2 Midnights Patient will require the following post-hospital care: None Practitioner: I am a practitioner with admitting privileges, knowledge of patient current condition, hospital course, and medical plan of care. Services: Services provided to patient in accordance with Admission requirements found in Title 42 Section 412.3 of the Code of Federal Regulations Patient History Date of Service: 06/17/22 Reason for admission: Pancreatitis History of Present Illness: Patient is a 57 year old male with past medical history of hypertension, insulin dependent type 2 diabetes, and dementia who presented to the emergency department with complaints of epigastric abdominal pain and nausea. He was admitted here 2 days ago for acute pancreatitis secondary to noncompliance with insulin regimen and treated supportively with IV hydration and bowel rest. His abdominal pain resolved, lipase trended down to normal, and he tolerated solid diet. He returns today with the same symptoms and states that he was not able to use his insulin until today because of access to needles. Labs today are significant for lipase 414, glucose 491, alk phos 202. CT was done 2 days ago and not repeated today. Patient is admitted for further management. Allergies duloxetine [From Cymbalta] Adverse Reaction (Verified 06/15/22 23:07) Nausea/Vomiting fluoxetine [From Prozac] Adverse Reaction (Verified 06/15/22 23:07) Nausea/Vomiting morphine Adverse Reaction (Verified 06/15/22 23:07) Shortness of breath Home medications list reviewed: Yes Home Medications: Insulin Detemir [Levemir] 30 units SQ BID 06/16/22 - Past Medical/Surgical History Diabetic: Yes -: Type 2 Diabetes, Insulin Dependent -: Hypertension -: Pancreatitis -: Dementia -: ERCP Psychosocial/ Personal History: Patient lives at home alone. He recently moved here from [place]. - Family History Father -: Other (see notes) Notes: Alzheimer - Social History Smoking Status: Never smoker Alcohol use: No CD- Drugs: No Caffeine use: Yes Place of Residence: Home Review of Systems Gastrointestinal: Nausea, Abdominal Pain Physical Examination - Vital Signs Temperature: 97.5 F Blood Pressure: 145/89 Pulse: 93 Respirations: 18 Pulse Ox (%): 99 - Physical Exam General: Alert, In no apparent distress HEENT: Atraumatic, PERRLA, EOMI, Sclerae nonicteric Neck: Supple, 2+ carotid pulse no bruit Respiratory: Clear to auscultation bilaterally, Normal air movement Cardiovascular: Regular rate/rhythm, Normal S1 S2 Gastrointestinal: Non-distended, Tenderness Musculoskeletal: No tenderness Integumentary: No rashes Neurological: Normal speech, Normal strength at 5/5 x4 extr - Studies Laboratory Data (last 24 hrs) 06/17/22 20:20: Sodium 135 L, Potassium 4.1, BUN 20 H, Creatinine 1.06, Glucose 491 H*, Total Bilirubin 0.4, AST 21, ALT 29, Alkaline Phosphatase 202 H, Lipase 414 H 06/17/22 20:20: WBC 8.70, Hgb 14.5, Hct 43.0, Plt Count 313 Assessment and Plan - Problems (Diagnosis) (1) Acute pancreatitis Current Visit: Yes Status: Acute Qualifiers: Pancreatitis type: unspecified pancreatitis type Acute pancreatitis complication: no infection or necrosis Qualified Code(s): K85.90 - Acute pancreatitis without necrosis or infection, unspecified (2) Hypertension Current Visit: Yes Status: Chronic Qualifiers: Hypertension type: primary hypertension Qualified Code(s): I10 - Essential (primary) hypertension (3) Type 2 diabetes mellitus Current Visit: Yes Status: Chronic Qualifiers: Diabetes mellitus ferry terminal supervisor insulin use: with ferry terminal supervisor use Diabetes mellitus complication status: with hyperglycemia Qualified Code(s): E11.65 - Type 2 diabetes mellitus with hyperglycemia; Z79.4 - detention (current) use of insulin - Plan Patient is admitted for further management of acute pancreatitis. NPO. IV hydration. Pain medications and antiemetics as needed. Glucose monitoring and control with aggressive sliding scale and home dose levemir- 30 units BID. Lipase daily. Monitor and replete electrolytes per protocol. Reconcile and continue home medications. Lovenox for VTE prophylaxis. Full code. Discharge Plan: Home Plan to discharge in: 48 Hours - Advance Directives Does patient have a Living Will: No Does patient have a Durable POA for Healthcare: No - Code Status/Comfort Care Code Status Assessed: Yes Code Status: Full Code Physician Review: Patient Assessed, Agree with Above Assessment and Plan Critical Care: No Time Spent Managing Pts Care (In Minutes): 50
[2022-06-17] MEDS ORDERED: PROMETHAZINE INJ 25 MG/ML AMP ONE (21:22)
[2022-06-17] MEDS ORDERED: HYDROMORPHONE HCL 0.5 MG/0.5 ML INJ ONE (21:22)
[2022-06-17] MEDS ORDERED: INSULIN -REGULAR HUMAN 50 UNIT/0.5 ML ML ONE (21:23)
[2022-06-17 22:06] LABS: SARS-CoV-2 Antigen Rapid Res Negative (Negative)
[2022-06-17] MEDS ORDERED: NA CHLORIDE 0.9% 1,000 ML IV SCH (22:25)
[2022-06-17] MEDS ORDERED: ACETAMINOPHEN 500 MG TAB PO PRN (22:25)
[2022-06-17] MEDS ORDERED: PROMETHAZINE INJ 25 MG/ML AMP IV PRN (22:25)
[2022-06-17 22:46] VITALS: BMI 22.5
[2022-06-17 23:09] VITALS: O2SAT 100
[2022-06-18] MEDS ORDERED: INSULIN -REGULAR HUMAN 50 UNIT/0.5 ML ML SQ SCH
[2022-06-18] MEDS: HYDROMORPHONE HCL 0.5 MG/0.5 ML INJ IV PRN ×2 (00:53→05:27)
[2022-06-18 04:03] LABS: Absolute Lymphocytes (CBC) 3.5 K/uL (0.7-4.9); Hematocrit 39.3 % (39.6-49.0); Lymphocytes % 36.5 % (15.3-44.8); MCV 89.7 fL (80-100); RBC Red Blood Cell Count 4.38 M/uL (4.33-5.43)
[2022-06-18 04:27] LABS: Albumin 3.1 g/dL (3.4-5.0); Bilirubin Total 0.3 mg/dL (0.2-1.0); Phosphorus 3.3 mg/dL (2.5-4.9); Potassium 3.6 mmol/L (3.5-5.1); Protein, Total 6.7 g/dL (6.4-8.2)
[2022-06-18] MEDS ORDERED: INFLUENZA VACCINE (for 6+ mo) 0.5 ML DOSE IMVAC ONE (08:00)
--- NOTE | 2022-06-18 08:17 | P.DS ---
Admission Date: 06/17/22 Discharge Date: 06/18/22 Disposition: ROUTINE DISCHARGE Discharge Condition: FAIR Reason for Admission: Pancreatitis - Problems (1) Acute on chronic pancreatitis Status: Acute (2) Hypertension Status: Chronic Qualifiers: Hypertension type: primary hypertension Qualified Code(s): I10 - Essential (primary) hypertension (3) Type 2 diabetes mellitus Status: Chronic Qualifiers: Diabetes mellitus long distance operator insulin use: with long distance operator use Diabetes mellitus complication status: with hyperglycemia Qualified Code(s): E11.65 - Type 2 diabetes mellitus with hyperglycemia; Z79.4 - superintendent terminal (current) use of insulin Brief History of Present Illness: Patient is a 57 year old male with past medical history of hypertension, insulin dependent type 2 diabetes, and dementia who presented to the emergency department with complaints of epigastric abdominal pain and nausea. He was admitted here 2 days prior for acute pancreatitis secondary to noncompliance with insulin regimen and treated supportively with IV hydration and bowel rest. His abdominal pain resolved, lipase trended down to normal, and he tolerated solid diet. He returned to the ED with the same symptoms and states that he was not able to use his insulin until a few hours before presenting to the ED because he had no pen needles. Labs significant for lipase 414, glucose 491, alk phos 202. CT was done 2 days ago and not repeated today. Patient was hospitalized for further management. Hospital Course: Patient placed under observation on the medical floor and treated with IV fluid and kept n.p.o. overnight. His symptoms resolved, he tolerated soft diet. Blood sugar readings improved. Patient stated he has gotten his pen needles now and will be able to use his insulin. Patient is currently asymptomatic. He was using Levemir 3 times a day. Patient informed to use it only twice a day and he may need a dose increased to control his blood sugar. He is also on glipizide and metformin. Patient is informed to follow-up with his PCP to titrate his Lantus insulin twice a day to control his blood sugar. He stated he will also follow-up with his PCP regarding his pancreatic mass for further evaluation. Patient reports history of pancreatic duct stents and I suspect he has chronic pancreatitis. He is clinically stable for discharge home. Vital Signs/Physical Exam: Temp Pulse Resp BP Pulse Ox 97.3 F 67 18 118/63 100 06/18/22 04:00 06/18/22 04:00 06/18/22 04:00 06/18/22 04:00 06/18/22 04:00 General: Alert, In no apparent distress, Oriented x3 HEENT: Mucous membr. moist/pink Respiratory: Clear to auscultation bilaterally, Normal air movement Cardiovascular: No edema, Regular rate/rhythm, Normal S1 S2 Gastrointestinal: Normal bowel sounds, Soft and benign, Non-distended, No tenderness Musculoskeletal: No swelling Integumentary: No rashes Neurological: Normal strength at 5/5 x4 extr Laboratory Data at Discharge: WBC 9.70 K/uL (4.3-10.9) 06/18/22 02:50 Hgb 13.3 g/dL (13.6-17.9) L D 06/18/22 02:50 Hct 39.3 % (39.6-49.0) L 06/18/22 02:50 Plt Count 311 K/uL (152-406) 06/18/22 02:50 Sodium 141 mmol/L (136-145) D 06/18/22 02:50 Potassium 3.6 mmol/L (3.5-5.1) 06/18/22 02:50 BUN 17 mg/dL (7-18) 06/18/22 02:50 Creatinine 0.73 mg/dL (0.70-1.30) 06/18/22 02:50 Glucose 186 mg/dL (74-106) H 06/18/22 02:50 Phosphorus 3.3 mg/dL (2.5-4.9) 06/18/22 02:50 Magnesium 2.0 mg/dL (1.6-2.4) 06/18/22 02:50 Total Bilirubin 0.3 mg/dL (0.2-1.0) 06/18/22 02:50 AST 16 U/L (15-37) 06/18/22 02:50 ALT 25 U/L (16-61) 06/18/22 02:50 Alkaline Phosphatase 159 U/L (45-117) H D 06/18/22 02:50 Lipase 330 U/L (73-393) 06/18/22 02:50 Home Medications: Atorvastatin Calcium 10 mg PO BEDTIME 06/18/22 Cetirizine HCl 10 mg PO DAILY 06/18/22 Gabapentin 300 mg PO BID 06/18/22 Gabapentin 600 mg PO BEDTIME 06/18/22 Hydrocodone 5/APAP 325 [Rose 5/325] 1 tab PO Q6H PRN #15 tab 06/18/22 Insulin Detemir [Levemir Flextouch] 30 units SQ BID #15 ml 06/18/22 Lisinopril [Zestril] 5 mg PO DAILY 06/18/22 Metformin HCl 500 mg PO TID 06/18/22 buPROPion HCL [Bupropion HCl Sr] 150 mg PO DAILY 06/18/22 glipiZIDE [Glipizide] 10 mg PO BID 06/18/22 New Medications: Insulin Detemir [Levemir Flextouch] 30 units SQ BID #15 ml Hydrocodone 5/APAP 325 [Rose 5/325] 1 tab PO Q6H PRN #15 tab PRN Reason: Pain Diet: ADA Activity: Ad kimberly Followup: Wayne Alvarez MD [Primary Care Provider] - 1-2 Weeks
[2022-06-18 08:37] VITALS: BP 124/71; TEMP 97.9
[2022-06-18] MEDS ORDERED: ENOXAPARIN 40 MG/0.4 ML SQ SCH (09:00)
== END 2022-06-18 09:39 | disposition home or self-care (01) ==
LOC: ER 19:21 → INTOOBSV 21:00 → ERHOLD 21:00 → 4TH 21:34
PROVIDERS: ADMIT Internal Medicine; ATTEND Internal Medicine
DX: K85.90 Acute pancreatitis without necrosis or infection, unspecified (principal); I10 Essential (primary) hypertension; E11.65 Type 2 diabetes mellitus with hyperglycemia; F03.90 Unspecified dementia, unspecified severity, without behavioral disturbance, psychotic disturbance, mood disturbance, and anxiety; Z79.4 Long term (current) use of insulin; Z88.6 Allergy status to analgesic agent; Z88.8 Allergy status to other drugs, medicaments and biological substances; Z20.822 Contact with and (suspected) exposure to COVID-19
CPT/HCPCS: 85025 ×2; 36415; 83735; 84100; 82947 ×3; 83690 ×2; 80053 ×2; 96372; 96374; 99284; 87811; J1815 ×2; J1170 ×3; J7030 ×2; G0378; J1650; J2550